=== PATIENT | female | born 1965 | race Caucasian/White ===

== ENCOUNTER 2020-10-13 20:12 | Day surgery (SDCO) | payer OTHER ==
[~2020-10-13] VITALS: Ht 165.1 cm; Wt 94.0 kg
[~2020-10-13 20:12] MED LIST: CYMBALTA60 MG PO; IBUPROFEN800 MG PO; PRINIVIL20 MG PO; SYNTHROID125 MCG PO; VENTOLIN HFA IN18 GM INH
[2020-10-13 22:18] LABS: BASOPHIL 0.1 % (0-2); EOSINOPHIL 0 % (0-5); HCT 33.5 % (37.0-47.0); HGB 10.4 g/dl (12.5-16.0); LYMPHOCYTE 13.9 % (15-48); MCH 27.6 pg (25.0-31.0); MCV 88.9 fL (78.0-100.0); MONOCYTE 3.5 % (0-12); MPV 11.4 fL (6.0-9.5); NEUTROPHIL 82.1 % (41-80); NRBC 0; PLT 232 K/uL (150-400); RBC 3.77 M/uL (4.20-5.40); RDW 14.5 % (11.5-14.0); WBC 6.9 K/uL (4.0-10.5)
[2020-10-13 22:23] LABS: INR 1.27 (0.9-1.2); PROTHROMBIN TIME 15.1 SECONDS (11.4-13.6); PTT 25.5 SECONDS (22.2-34.7)
[2020-10-13 22:31] LABS: ALBUMIN 3.3 g/dL (3.4-5.0); BILIRUBIN - TOTAL 0.4 mg/dL (0.2-1.0); GLOBULIN (CALCULATION) 3.8 g/dL; POTASSIUM 4.1 mmol/L (3.5-5.1); TOTAL PROTEIN 7.1 g/dL (6.4-8.2)
[2020-10-13 23:00] LABS: LDH 325 U/L (81-234)
[2020-10-13 23:36] LABS: CORONAVIRUS 2019 SARS-COV-2 NEGATIVE (NEGATIVE); INFLUENZA A NAA NEGATIVE (NEGATIVE)
[2020-10-14 03:17] LABS: BILIRUBIN NEGATIVE (NEGATIVE); BLOOD NEGATIVE Ery/uL (NEGATIVE); CLARITY CLEAR (CLEAR); COLOR YELLOW (YELLOW); GLUCOSE (U) NORMAL (NORMAL); LEUKOCYTES NEGATIVE Leu/uL (NEGATIVE); NITRITE NEGATIVE (NEGATIVE); PROTEIN 1+ mg/dL (NEGATIVE); SPECIFIC GRAVITY >=1.030 (1.001-1.030); UROBILINOGEN 0.2 mg/dL (0.2-1.0); pH 5.5 (5.0-9.0)
[2020-10-14 03:26] LABS: AMORPHOUS URATES CRYSTALS TRACE
[2020-10-14] MEDS ORDERED: CIPRO500 MG PO (04:46)
[2020-10-14] MEDS ORDERED: PREDNISONE 20MG20 MG PO (04:48)
[2020-10-14] MEDS ORDERED: SYNTHROID50 MCG PO (04:50)
[2020-10-14] MEDS ORDERED: PRINIVIL10 MG PO (04:50)
[2020-10-14] MEDS ORDERED: CYMBALTA20 MG PO (04:51)
[2020-10-14] MEDS ORDERED: IMITREX25 MG PO (04:53)
[2020-10-14] MEDS ORDERED: SINGULAIR10 MG PO (04:53)
[2020-10-14] MEDS ORDERED: PROAIR HFA8.5 GM PO (04:54)
[2020-10-14] MEDS ORDERED: ADVAIR 100-501 EACH INH (04:55)
[2020-10-14] MEDS ORDERED: IBUPROFEN800 MG PO (04:56)
[2020-10-15 00:21] LABS: BUN/CREAT RATIO (CALC) 25.2 RATIO; CREATININE 1.19 mg/dL (0.51-0.95); MAGNESIUM 2.2 mg/dL (1.8-2.4); POTASSIUM 3.8 mmol/L (3.5-5.1)
[2020-10-15 06:35] LABS: BASOPHIL 0.2 % (0-2); EOSINOPHIL 0.1 % (0-5); HCT 38.9 % (37.0-47.0); HGB 12.6 g/dl (12.5-16.0); LYMPHOCYTE 35.8 % (15-48); MCH 27.3 pg (25.0-31.0); MCHC 32.4 g/dL (32.0-36.0); MCV 84.2 fL (78.0-100.0); MONOCYTE 6.1 % (0-12); MPV 10.9 fL (6.0-9.5); NEUTROPHIL 57.3 % (41-80); NRBC 0; PLT 255 K/uL (150-400); RBC 4.62 M/uL (4.20-5.40); RDW 13.7 % (11.5-14.0); WBC 8.8 K/uL (4.0-10.5)
[2020-10-15 06:55] LABS: ALBUMIN 3.8 g/dL (3.4-5.0); BILIRUBIN - TOTAL 0.6 mg/dL (0.2-1.0); BUN/CREAT RATIO (CALC) 27.4 RATIO; CREATININE 1.13 mg/dL (0.51-0.95); GLOBULIN (CALCULATION) 3.7 g/dL; POTASSIUM 3.8 mmol/L (3.5-5.1); TOTAL PROTEIN 7.5 g/dL (6.4-8.2)
== END 2020-10-16 09:59 | disposition other institution (70) ==
LOC: FER 20:12 → FTCU 10-14 03:08
PROVIDERS: Emergency Medicine Emergency Medical Services; Nurse Practitioner; ADMIT Internal Medicine
DX: I11.0 Hypertensive heart disease with heart failure (principal); I50.9 Heart failure, unspecified; I08.8 Other rheumatic multiple valve diseases; E03.9 Hypothyroidism, unspecified; J44.1 Chronic obstructive pulmonary disease with (acute) exacerbation; G43.909 Migraine, unspecified, not intractable, without status migrainosus; F17.210 Nicotine dependence, cigarettes, uncomplicated; M19.90 Unspecified osteoarthritis, unspecified site; Z90.49 Acquired absence of other specified parts of digestive tract; Z88.1 Allergy status to other antibiotic agents; Z20.822 Contact with and (suspected) exposure to COVID-19
CPT/HCPCS: 36415; 36600; 71045; 71275; 74018; 80048; 80053; 81001; 82728; 82803; 83615; 83735; 83880; 84145; 84484; 85025; 85379; 85610; 85730; 87088; 93005; 93971; 94640; 94664; 94762; 96365; 96375; 97116; 97161; 97530-GP; G0378; J1940; J1956; J2060; J2930; Q9967; U0002

== ENCOUNTER 2020-11-14 03:27 | Inpatient (IN) | payer OTHER ==
[~2020-11-14 03:27] MED LIST changes: +ADVAIR 100-501 EACH INH; +CIPRO500 MG PO; +CYMBALTA20 MG PO; +IMITREX25 MG PO; +PREDNISONE 20MG20 MG PO; +PRINIVIL10 MG PO; +PROAIR HFA8.5 GM PO; +SINGULAIR10 MG PO; +SYNTHROID50 MCG PO
[2020-11-14 04:01] LABS: BASOPHIL 0.3 % (0-2); EOSINOPHIL 0.7 % (0-5); HCT 34.3 % (37.0-47.0); HGB 11.2 g/dl (12.5-16.0); LYMPHOCYTE 28.1 % (15-48); MCH 26.8 pg (25.0-31.0); MCHC 32.7 g/dL (32.0-36.0); MCV 82.1 fL (78.0-100.0); MONOCYTE 6.9 % (0-12); MPV 11.4 fL (6.0-9.5); NEUTROPHIL 63.8 % (41-80); NRBC 0; PLT 198 K/uL (150-400); RBC 4.18 M/uL (4.20-5.40)
[2020-11-14 04:19] LABS: ALBUMIN 3.1 g/dL (3.4-5.0); BILIRUBIN - TOTAL 0.6 mg/dL (0.2-1.0); BUN/CREAT RATIO (CALC) 15.1 RATIO; CREATININE 0.73 mg/dL (0.51-0.95); GLOBULIN (CALCULATION) 3.2 g/dL; POTASSIUM 2.7 mmol/L (3.5-5.1); TOTAL PROTEIN 6.3 g/dL (6.4-8.2)
[2020-11-14] MEDS ORDERED: PROPRANOLOL HCL20 MG PO (12:40)
[2020-11-14] MEDS ORDERED: SUMATRIPTAN SUC50 MG PO (12:48)
[2020-11-14] MEDS ORDERED: VITAMIN D21250 MCG OS (12:52)
[2020-11-14] MEDS ORDERED: VITAMIN B-121000 MC1 PO (12:54)
[2020-11-14] MEDS ORDERED: LEVOTHYROXINE175 MC1 PO (12:54)
[2020-11-14] MEDS ORDERED: SINGULAIR10 MG PO (12:57)
[2020-11-14] MEDS ORDERED: VITAMIN D21250 MCG PO (12:57)
[2020-11-14] MEDS ORDERED: LISINOPRIL-HCT1 EAC1 PO (12:59)
[2020-11-14] MEDS ORDERED: PROAIR DIGIHAL90 MCG INH (13:01)
[2020-11-14] MEDS ORDERED: CHLORZOXAZONE500 MG PO (13:02)
[2020-11-14] MEDS ORDERED: IBUPROFEN800 MG PO (13:02)
[2020-11-14] MEDS ORDERED: INDERAL20 MG PO (13:03)
[2020-11-14] MEDS ORDERED: CYMBALTA20 MG PO (13:04)
[2020-11-14] MEDS ORDERED: ADVAIR 250/5028 PUFF INH (13:06)
[2020-11-14] MEDS ORDERED: CIPRO500 MG PO (13:07)
[2020-11-14] MEDS ORDERED: PREDNISONE 20MG20 MG PO (13:08)
[2020-11-14] MEDS ORDERED: TOPROL XL 25MG25 MG PO (13:09)
[2020-11-15 06:16] LABS: BUN/CREAT RATIO (CALC) 16.5 RATIO; CREATININE 0.85 mg/dL (0.51-0.95); MAGNESIUM 1.7 mg/dL (1.8-2.4); POTASSIUM 3.3 mmol/L (3.5-5.1)
[2020-11-15 06:32] LABS: BASOPHIL 0.4 % (0-2); EOSINOPHIL 1.8 % (0-5); HCT 36.6 % (37.0-47.0); HGB 11.7 g/dl (12.5-16.0); LYMPHOCYTE 30.7 % (15-48); MCH 26.7 pg (25.0-31.0); MCV 83.4 fL (78.0-100.0); MONOCYTE 6.8 % (0-12); MPV 11.8 fL (6.0-9.5); NEUTROPHIL 59.9 % (41-80); NRBC 0; PLT 212 K/uL (150-400); RBC 4.39 M/uL (4.20-5.40); RDW 15.3 % (11.5-14.0); WBC 5.6 K/uL (4.0-10.5)
[2020-11-16 05:57] LABS: BASOPHIL 0.6 % (0-2); EOSINOPHIL 1.9 % (0-5); HCT 35.6 % (37.0-47.0); HGB 11.5 g/dl (12.5-16.0); LYMPHOCYTE 35.8 % (15-48); MCH 26.7 pg (25.0-31.0); MCHC 32.3 g/dL (32.0-36.0); MCV 82.6 fL (78.0-100.0); MONOCYTE 8.5 % (0-12); MPV 10.9 fL (6.0-9.5); NEUTROPHIL 52.8 % (41-80); NRBC 0; PLT 181 K/uL (150-400); RBC 4.31 M/uL (4.20-5.40); WBC 5.2 K/uL (4.0-10.5)
[2020-11-16 05:58] LABS: BUN/CREAT RATIO (CALC) 17.2 RATIO; CREATININE 0.87 mg/dL (0.51-0.95); MAGNESIUM 1.7 mg/dL (1.8-2.4); POTASSIUM 3.5 mmol/L (3.5-5.1)
[2020-11-16] MEDS ORDERED: MAG-OXIDE 400M400 MG PO (09:05)
[2020-11-16] MEDS ORDERED: BUMEX1 MG PO (09:05)
[2020-11-16] MEDS ORDERED: DIOVAN80 MG PO (09:05)
[2020-11-16] MEDS ORDERED: TOPROL XL 25MG25 MG PO (09:05)
[2020-11-16] MEDS ORDERED: K-DUR20 MEQ PO (09:06)
--- NOTE | 2020-11-16 09:58 | NUR ---
MET WITH PT AND SPOUSE. PT. REPORTS THAT SHE IS INDEPENDENT. SHE HAS THE SUPPORT OF HER . SHE HAS A LIFE VEST DEFIBULATOR. SHE WILL BE SEEING HER CARIOLOGIST ON November. SHE WOULD LIKE A 10/01. ADVISED JIMI PERSAUD SHE CONTINUES TO FOLLOW HER FROM [facility].
--- NOTE | 2020-11-16 10:32 | NUR ---
11/16/20 Patient lives with her former spouse and her brother. She has a life vest and nebulizer. Ms. Medrano has been denied SSD 3 times. She receives foodstamps. She continues to experience financial struggles. - Ms. Medrano reports to experience depression. She denies suicidal ideations, intentions, or attempts. - A referral was made to [facility] for a 3in1 per patient choice. The 3in1 will be delivered to home. - Ms. Medrano was provided with counseling services and financial community resources to include [employer]. - A report was given to MS BOB Soriano.
== END 2020-11-16 12:00 | disposition home or self-care (01) | DRG 293 ==
LOC: FER 03:27 → FTCU 08:34 → FMS 11-15 09:09
PROVIDERS: Emergency Medicine; ADMIT Internal Medicine
DX: I11.0 Hypertensive heart disease with heart failure (principal); I50.23 Acute on chronic systolic (congestive) heart failure; E03.9 Hypothyroidism, unspecified; I42.8 Other cardiomyopathies; J44.9 Chronic obstructive pulmonary disease, unspecified; Z20.822 Contact with and (suspected) exposure to COVID-19; E87.6 Hypokalemia; E83.42 Hypomagnesemia; T50.2X5A Adverse effect of carbonic-anhydrase inhibitors, benzothiadiazides and other diuretics, initial encounter; G43.909 Migraine, unspecified, not intractable, without status migrainosus; R73.9 Hyperglycemia, unspecified; D64.9 Anemia, unspecified; Z90.49 Acquired absence of other specified parts of digestive tract; Z88.1 Allergy status to other antibiotic agents; Z98.890 Other specified postprocedural states; Z79.52 Long term (current) use of systemic steroids; Z79.899 Other long term (current) drug therapy
CPT/HCPCS: 36415; 36600; 71045; 71275; 80048; 80053; 82803; 83735; 83880; 84484; 85025; 85379; 93005; 94640; 94760; J1650; J1940; J2060; J3475; J3480; Q9967; U0002

== ENCOUNTER 2020-12-22 17:00 | Emergency (ER) | payer OTHER ==
[~2020-12-22 17:00] MED LIST changes: +ADVAIR 250/5028 PUFF INH; +BUMEX1 MG PO; +CHLORZOXAZONE500 MG PO; +DIOVAN80 MG PO; +INDERAL20 MG PO; +K-DUR20 MEQ PO; +LEVOTHYROXINE175 MC1 PO; +LISINOPRIL-HCT1 EAC1 PO; +MAG-OXIDE 400M400 MG PO; +PROAIR DIGIHAL90 MCG INH; +PROPRANOLOL HCL20 MG PO; +SUMATRIPTAN SUC50 MG PO; +TOPROL XL 25MG25 MG PO; +VITAMIN B-121000 MC1 PO; +VITAMIN D21250 MCG OS; +VITAMIN D21250 MCG PO
[2020-12-22 18:13] LABS: BASOPHIL 0.4 % (0-2); EOSINOPHIL 0.2 % (0-5); HCT 37.1 % (37.0-47.0); HGB 11.9 g/dl (12.5-16.0); LYMPHOCYTE 23.9 % (15-48); MCH 25.9 pg (25.0-31.0); MCHC 32.1 g/dL (32.0-36.0); MCV 80.8 fL (78.0-100.0); MONOCYTE 6.5 % (0-12); MPV 11.6 fL (6.0-9.5); NEUTROPHIL 68.6 % (41-80); NRBC 0; PLT 212 K/uL (150-400); RBC 4.59 M/uL (4.20-5.40); RDW 17.3 % (11.5-14.0); WBC 4.9 K/uL (4.0-10.5)
[2020-12-22 18:23] LABS: INR 1.41 (0.9-1.2); PROTHROMBIN TIME 16.4 SECONDS (11.4-13.6); PTT 29.6 SECONDS (22.2-34.7)
[2020-12-22 18:34] LABS: LACTIC ACID 4.1 mmol/L (0.4-1.9)
[2020-12-22 18:40] LABS: ALBUMIN 3.3 g/dL (3.4-5.0); BILIRUBIN - TOTAL 1.3 mg/dL (0.2-1.0); BUN/CREAT RATIO (CALC) 12.6 RATIO; CREATININE 0.87 mg/dL (0.51-0.95); GLOBULIN (CALCULATION) 4.1 g/dL; POTASSIUM 3.2 mmol/L (3.5-5.1); TOTAL PROTEIN 7.4 g/dL (6.4-8.2)
[2020-12-22 18:41] LABS: CKMB 1.7 ng/mL (0.0-3.6)
== END 2020-12-23 09:45 | disposition other institution (70) ==
LOC: FER 17:00
PROVIDERS: Emergency Medicine
DX: I50.9 Heart failure, unspecified (principal); R10.9 Unspecified abdominal pain; R11.0 Nausea; E87.6 Hypokalemia; J90 Pleural effusion, not elsewhere classified; I44.7 Left bundle-branch block, unspecified; F17.210 Nicotine dependence, cigarettes, uncomplicated; Z90.49 Acquired absence of other specified parts of digestive tract; Z88.1 Allergy status to other antibiotic agents; Z79.899 Other long term (current) drug therapy; Z20.822 Contact with and (suspected) exposure to COVID-19
CPT/HCPCS: 36415; 71046; 74019; 80053; 82553; 83605; 83690; 83880; 84484; 85025; 85610; 85730; 87339; 93005; J1885; J2405; J3480; J7040; Q9967; U0002

== ENCOUNTER 2021-01-20 23:46 | Day surgery (SDCO) | payer OTHER ==
[~2021-01-20] VITALS: Ht 165.1 cm; Wt 80.8 kg
[2021-01-21 01:59] LABS: BASOPHIL 0.3 % (0-2); EOSINOPHIL 0.4 % (0-5); HCT 32.9 % (37.0-47.0); HGB 10.4 g/dl (12.5-16.0); LYMPHOCYTE 27.5 % (15-48); MCH 25.1 pg (25.0-31.0); MCHC 31.6 g/dL (32.0-36.0); MCV 79.3 fL (78.0-100.0); MONOCYTE 4.5 % (0-12); MPV 11.3 fL (6.0-9.5); NEUTROPHIL 66.9 % (41-80); NRBC 0.4; PLT 183 K/uL (150-400); RBC 4.15 M/uL (4.20-5.40); RDW 19.7 % (11.5-14.0); WBC 6.9 K/uL (4.0-10.5)
[2021-01-21 02:10] LABS: INR 1.39 (0.9-1.2); PROTHROMBIN TIME 16.2 SECONDS (11.4-13.6); PTT 31.1 SECONDS (22.2-34.7)
[2021-01-21 02:11] LABS: D-DIMER 1.9 ug/mLFEU (0.00-0.41)
[2021-01-21 02:22] LABS: LACTIC ACID 2.1 mmol/L (0.4-1.9)
[2021-01-21 02:51] LABS: FT4 (FREE T4) 0.9 ng/dL (0.76-1.46)
[2021-01-21 02:55] LABS: ALBUMIN 3.3 g/dL (3.4-5.0); BILIRUBIN - TOTAL 1.3 mg/dL (0.2-1.0); BUN/CREAT RATIO (CALC) 23.8 RATIO; CREATININE 0.8 mg/dL (0.51-0.95); POTASSIUM 3.3 mmol/L (3.5-5.1); TOTAL PROTEIN 7.3 g/dL (6.4-8.2)
[2021-01-21 10:52] LABS: BILIRUBIN NEGATIVE (NEGATIVE); BLOOD NEGATIVE Ery/uL (NEGATIVE); CLARITY CLEAR (CLEAR); COLOR YELLOW (YELLOW); GLUCOSE (U) NORMAL (NORMAL); LEUKOCYTES NEGATIVE Leu/uL (NEGATIVE); NITRITE NEGATIVE (NEGATIVE); PROTEIN NEGATIVE (NEGATIVE); SPECIFIC GRAVITY 1.015 (1.001-1.030); UROBILINOGEN 0.2 mg/dL (0.2-1.0)
--- NOTE | 2021-01-21 10:53 | NUR ---
LEVSHARON WAS ON PATIENT'S CHART VIET, ASKED PATIENT AND SHE STATES SHE HAS NO ALLERGIES TO ANY MEDICATION
[2021-01-22 06:19] LABS: BASOPHIL 0.1 % (0-2); EOSINOPHIL 0 % (0-5); HCT 33.6 % (37.0-47.0); HGB 10.7 g/dl (12.5-16.0); LYMPHOCYTE 10.6 % (15-48); MCH 25.2 pg (25.0-31.0); MCHC 31.8 g/dL (32.0-36.0); MCV 79.1 fL (78.0-100.0); MPV 11.4 fL (6.0-9.5); NRBC 0.2; PLT 170 K/uL (150-400); RBC 4.25 M/uL (4.20-5.40); RDW 19.9 % (11.5-14.0); WBC 8.9 K/uL (4.0-10.5)
[2021-01-22 07:06] LABS: BUN/CREAT RATIO (CALC) 29.4 RATIO; CREATININE 1.02 mg/dL (0.51-0.95); POTASSIUM 3.7 mmol/L (3.5-5.1)
[2021-01-22] MEDS ORDERED: NORCO 5-325 TA1 EACH PO (11:31)
== END 2021-01-22 16:20 | disposition home or self-care (01) ==
LOC: FER 23:46 → FMS 01-21 07:51
PROVIDERS: Emergency Medicine Emergency Medical Services; Internal Medicine; ADMIT Internal Medicine
DX: I42.8 Other cardiomyopathies (principal); J44.9 Chronic obstructive pulmonary disease, unspecified; G43.909 Migraine, unspecified, not intractable, without status migrainosus; E03.9 Hypothyroidism, unspecified; I10 Essential (primary) hypertension; M19.90 Unspecified osteoarthritis, unspecified site; I45.4 Nonspecific intraventricular block; Z95.810 Presence of automatic (implantable) cardiac defibrillator; Z20.822 Contact with and (suspected) exposure to COVID-19
CPT/HCPCS: 36415; 71045; 80048; 80053; 81003; 83605; 83880; 84145; 84439; 84443; 84484; 85025; 85379; 85610; 85730; 87040; 87088; 93005; 94640; 96365; 96375; 96376; G0378; J0692; J1100; J1200; J1885; J1940; J2270; J2543; J2765; U0002

== ENCOUNTER 2021-02-15 21:53 | Inpatient (IN) | payer OTHER ==
[~2021-02-15] VITALS: Ht 165.1 cm; Wt 77.4 kg
[~2021-02-15 21:53] MED LIST changes: +NORCO 5-325 TA1 EACH PO
[2021-02-15 23:25] LABS: BASOPHIL 0.6 % (0-2); EOSINOPHIL 0.2 % (0-5); HCT 35.4 % (37.0-47.0); HGB 10.8 g/dl (12.5-16.0); MCH 24.4 pg (25.0-31.0); MCHC 30.5 g/dL (32.0-36.0); MCV 79.9 fL (78.0-100.0); MONOCYTE 7.4 % (0-12); MPV 11.3 fL (6.0-9.5); NEUTROPHIL 62.5 % (41-80); NRBC 0.4; PLT 200 K/uL (150-400); RBC 4.43 M/uL (4.20-5.40); RDW 20.4 % (11.5-14.0); WBC 4.7 K/uL (4.0-10.5)
[2021-02-15 23:27] LABS: LYMPHOCYTE 29.1 % (15-48)
[2021-02-15 23:43] LABS: ALBUMIN 3.3 g/dL (3.4-5.0); BILIRUBIN - TOTAL 1.6 mg/dL (0.2-1.0); BUN/CREAT RATIO (CALC) 13.8 RATIO; CREATININE 0.87 mg/dL (0.51-0.95); GLOBULIN (CALCULATION) 3.7 g/dL; POTASSIUM 2.9 mmol/L (3.5-5.1)
--- NOTE | 2021-02-16 12:32 | NUR ---
PT IS IN OBSERVATION. PLEASE CONSIDER INPT OR D/C. THANK YOU
[2021-02-17 05:51] LABS: BASOPHIL 0.5 % (0-2); EOSINOPHIL 0.2 % (0-5); LYMPHOCYTE 25.8 % (15-48); MCH 24.2 pg (25.0-31.0); MCHC 29.3 g/dL (32.0-36.0); MCV 82.8 fL (78.0-100.0); MONOCYTE 10.2 % (0-12); MPV 11.7 fL (6.0-9.5); NEUTROPHIL 63.1 % (41-80); NRBC 0.5; PLT 199 K/uL (150-400); RBC 4.95 M/uL (4.20-5.40); RDW 20.7 % (11.5-14.0); WBC 5.9 K/uL (4.0-10.5)
[2021-02-17 06:21] LABS: ALBUMIN 3.6 g/dL (3.4-5.0); BILIRUBIN - TOTAL 2.2 mg/dL (0.2-1.0); BUN/CREAT RATIO (CALC) 9.9 RATIO; CREATININE 1.81 mg/dL (0.51-0.95); GLOBULIN (CALCULATION) 3.5 g/dL; TOTAL PROTEIN 7.1 g/dL (6.4-8.2)
[2021-02-17 06:26] LABS: POTASSIUM 6.4 mmol/L (3.5-5.1)
[2021-02-17 06:34] LABS: CKMB 3.2 ng/mL (0.0-3.6)
[2021-02-17 14:56] LABS: CREATININE 2.08 mg/dL (0.51-0.95); POTASSIUM 6.2 mmol/L (3.5-5.1)
[2021-02-17 20:24] LABS: BUN/CREAT RATIO (CALC) 13.4 RATIO; CREATININE 2.31 mg/dL (0.51-0.95); POTASSIUM 5.6 mmol/L (3.5-5.1)
[2021-02-18 06:11] LABS: BUN/CREAT RATIO (CALC) 13.3 RATIO; CREATININE 2.26 mg/dL (0.51-0.95)
[2021-02-18 06:18] LABS: POTASSIUM 4.1 mmol/L (3.5-5.1)
[2021-02-19 04:43] LABS: BASOPHIL 0.4 % (0-2); EOSINOPHIL 0.2 % (0-5); HCT 35.5 % (37.0-47.0); HGB 10.7 g/dl (12.5-16.0); LYMPHOCYTE 24.4 % (15-48); MCH 24.2 pg (25.0-31.0); MCHC 30.1 g/dL (32.0-36.0); MCV 80.3 fL (78.0-100.0); MONOCYTE 9.9 % (0-12); MPV 11.8 fL (6.0-9.5); NEUTROPHIL 64.7 % (41-80); NRBC 0.6; PLT 170 K/uL (150-400); RBC 4.42 M/uL (4.20-5.40); WBC 5.2 K/uL (4.0-10.5)
[2021-02-19 05:09] LABS: BUN/CREAT RATIO (CALC) 17.5 RATIO; CREATININE 1.66 mg/dL (0.51-0.95); POTASSIUM 3.4 mmol/L (3.5-5.1)
[2021-02-19 11:45] LABS: URINE CREATININE 98.59 mg/dL (29.00-226.00)
[2021-02-20 06:35] LABS: BASOPHIL 0.2 % (0-2); EOSINOPHIL 0.4 % (0-5); HCT 35.1 % (37.0-47.0); HGB 10.7 g/dl (12.5-16.0); LYMPHOCYTE 27.8 % (15-48); MCH 24.3 pg (25.0-31.0); MCHC 30.5 g/dL (32.0-36.0); MCV 79.6 fL (78.0-100.0); MONOCYTE 10.7 % (0-12); MPV 10.5 fL (6.0-9.5); NEUTROPHIL 60.7 % (41-80); NRBC 0; PLT 143 K/uL (150-400); RBC 4.41 M/uL (4.20-5.40); RDW 20.1 % (11.5-14.0)
[2021-02-20 06:40] LABS: WBC 4.6 K/uL (4.0-10.5)
[2021-02-20 07:07] LABS: BUN/CREAT RATIO (CALC) 17.9 RATIO; CREATININE 1.12 mg/dL (0.51-0.95); FT4 (FREE T4) 1.2 ng/dL (0.76-1.46); MAGNESIUM 1.6 mg/dL (1.8-2.4); PHOSPHORUS 3.3 mg/dL (2.6-4.7); POTASSIUM 3.5 mmol/L (3.5-5.1)
[2021-02-21 05:59] LABS: BASOPHIL 0.2 % (0-2); EOSINOPHIL 0.2 % (0-5); HCT 34.5 % (37.0-47.0); HGB 10.4 g/dl (12.5-16.0); LYMPHOCYTE 22.2 % (15-48); MCH 23.9 pg (25.0-31.0); MCHC 30.1 g/dL (32.0-36.0); MCV 79.3 fL (78.0-100.0); MONOCYTE 8.5 % (0-12); MPV 11.4 fL (6.0-9.5); NEUTROPHIL 68.7 % (41-80); NRBC 0; PLT 162 K/uL (150-400); RBC 4.35 M/uL (4.20-5.40)
[2021-02-21 06:05] LABS: BUN/CREAT RATIO (CALC) 17.1 RATIO; CREATININE 1.05 mg/dL (0.51-0.95); MAGNESIUM 1.6 mg/dL (1.8-2.4); POTASSIUM 3.6 mmol/L (3.5-5.1)
== END 2021-02-21 16:45 | disposition home or self-care (01) | DRG 291 ==
LOC: FER 21:53 → FMS 02-16 03:08
PROVIDERS: Allergy & Immunology Allergy; Internal Medicine; Internal Medicine Nephrology; Nurse Practitioner; ADMIT Internal Medicine
DX: I13.0 Hypertensive heart and chronic kidney disease with heart failure and stage 1 through stage 4 chronic kidney disease, or unspecified chronic kidney disease (principal); I50.23 Acute on chronic systolic (congestive) heart failure; N17.9 Acute kidney failure, unspecified; I42.8 Other cardiomyopathies; Z20.822 Contact with and (suspected) exposure to COVID-19; J44.9 Chronic obstructive pulmonary disease, unspecified; E87.6 Hypokalemia; G43.909 Migraine, unspecified, not intractable, without status migrainosus; N18.2 Chronic kidney disease, stage 2 (mild); E03.9 Hypothyroidism, unspecified; F17.210 Nicotine dependence, cigarettes, uncomplicated; M19.90 Unspecified osteoarthritis, unspecified site; E87.5 Hyperkalemia; E83.42 Hypomagnesemia; G47.00 Insomnia, unspecified; F41.9 Anxiety disorder, unspecified; Z79.899 Other long term (current) drug therapy; Z88.1 Allergy status to other antibiotic agents; Z90.49 Acquired absence of other specified parts of digestive tract; Z98.890 Other specified postprocedural states; Z90.89 Acquired absence of other organs; Z95.810 Presence of automatic (implantable) cardiac defibrillator
CPT/HCPCS: 36415; 71045; 80048; 80053; 82553; 82570; 83690; 83735; 83880; 84100; 84132; 84156; 84439; 84443; 84484; 85025; 93005; 94010; 94640; 94760; J1650; J1940; J2405; J2550; J3475; J7030; U0002

== ENCOUNTER 2021-02-28 15:31 | Day surgery (SDCO) | payer OTHER ==
[~2021-02-28] VITALS: Ht 165.1 cm; Wt 81.3 kg
[2021-02-28 16:06] LABS: BASOPHIL 0.3 % (0-2); EOSINOPHIL 0 % (0-5); HCT 35.7 % (37.0-47.0); HGB 10.7 g/dl (12.5-16.0); LYMPHOCYTE 23.4 % (15-48); MONOCYTE 6.9 % (0-12); MPV 11.9 fL (6.0-9.5); NEUTROPHIL 69.1 % (41-80); NRBC 0.3; PLT 223 K/uL (150-400); RBC 4.46 M/uL (4.20-5.40); RDW 20.5 % (11.5-14.0)
[2021-02-28 16:13] LABS: INR 1.53 (0.9-1.2); PROTHROMBIN TIME 17.7 SECONDS (11.8-13.4); PTT 29.3 SECONDS (24.4-34.7); WBC 5.8 K/uL (4.0-10.5)
[2021-02-28 16:25] LABS: ALBUMIN 3.4 g/dL (3.4-5.0); BILIRUBIN - TOTAL 1.6 mg/dL (0.2-1.0); BUN/CREAT RATIO (CALC) 21.1 RATIO; CREATININE 0.95 mg/dL (0.51-0.95); TOTAL PROTEIN 7.4 g/dL (6.4-8.2)
[2021-03-01 06:44] LABS: BASOPHIL 0.2 % (0-2); EOSINOPHIL 0.9 % (0-5); HCT 31.5 % (37.0-47.0); HGB 9.7 g/dl (12.5-16.0); MCH 24.3 pg (25.0-31.0); MCHC 30.8 g/dL (32.0-36.0); MCV 78.8 fL (78.0-100.0); MONOCYTE 7.9 % (0-12); MPV 11.4 fL (6.0-9.5); NEUTROPHIL 54.8 % (41-80); NRBC 0; PLT 179 K/uL (150-400); RDW 19.9 % (11.5-14.0); WBC 4.5 K/uL (4.0-10.5)
[2021-03-01 07:01] LABS: CREATININE 1.28 mg/dL (0.51-0.95); POTASSIUM 4.2 mmol/L (3.5-5.1)
[2021-03-01] MEDS ORDERED: NORCO 5-325 TA1 EACH PO (11:37)
[2021-03-01] MEDS ORDERED: IBUPROFEN400 MG PO (11:37)
--- NOTE | 2021-03-01 14:19 | NUR ---
D/C INSTRUCTIONS GIVEN TO PT AT 1200. PT STATED SHE WOULD CALL HER SISTER TO COME GET HER AND WENT BACK TO SLEEP IN HER CHAIR. WHEN LUNCH WAS BROUGHT, I WOKE PATIENT UP AND ASKED HER IF SHE WANTED TO EAT THEN CALL HER SISTER FOR HER RIDE HOME. SHE STATED SHE WOULD CALL AFTER SHE ATE. CHECKED ON PATIENT AFTER LUNCH AND SHE STATED HER SISTER DID NOT ANSWER AND SHE LEFT A MESSAGE.
== END 2021-03-01 16:00 | disposition home or self-care (01) ==
LOC: FER 15:31 → FTCU 20:59
PROVIDERS: Emergency Medicine; Nurse Practitioner; ADMIT Internal Medicine
DX: R07.89 Other chest pain (principal); M94.0 Chondrocostal junction syndrome [Tietze]; I11.0 Hypertensive heart disease with heart failure; I50.20 Unspecified systolic (congestive) heart failure; I42.8 Other cardiomyopathies; J44.9 Chronic obstructive pulmonary disease, unspecified; E87.70 Fluid overload, unspecified; F41.1 Generalized anxiety disorder; G43.909 Migraine, unspecified, not intractable, without status migrainosus; E03.9 Hypothyroidism, unspecified; M19.90 Unspecified osteoarthritis, unspecified site; F17.210 Nicotine dependence, cigarettes, uncomplicated; Z95.810 Presence of automatic (implantable) cardiac defibrillator; Z88.1 Allergy status to other antibiotic agents; Z79.01 Long term (current) use of anticoagulants; Z79.1 Long term (current) use of non-steroidal anti-inflammatories (NSAID); Z79.899 Other long term (current) drug therapy; Z20.822 Contact with and (suspected) exposure to COVID-19
CPT/HCPCS: 36415; 71045; 71275; 80048; 80053; 83880; 84439; 84443; 84484; 85025; 85610; 85730; 93005; G0378; J1885; J2270; J2405; Q9967; U0002

== ENCOUNTER 2021-03-27 22:21 | Inpatient (IN) | payer OTHER ==
[~2021-03-27] VITALS: Ht 165.1 cm; Wt 84.4 kg
[~2021-03-27 22:21] MED LIST changes: +IBUPROFEN400 MG PO
[2021-03-28 01:23] LABS: BASOPHIL 0.1 % (0-2); EOSINOPHIL 0 % (0-5); HGB 10.2 g/dl (12.5-16.0); LYMPHOCYTE 9.1 % (15-48); MCH 23.2 pg (25.0-31.0); MCV 77.3 fL (78.0-100.0); MONOCYTE 4.6 % (0-12); MPV 11.8 fL (6.0-9.5); NEUTROPHIL 85.8 % (41-80); NRBC 0.6; PLT 185 K/uL (150-400); RDW 20.7 % (11.5-14.0); WBC 7.1 K/uL (4.0-10.5)
[2021-03-28 01:38] LABS: LACTIC ACID 2.5 mmol/L (0.4-1.9)
[2021-03-28 01:47] LABS: ALBUMIN 3.1 g/dL (3.4-5.0); BILIRUBIN - TOTAL 1.2 mg/dL (0.2-1.0); BUN/CREAT RATIO (CALC) 23.6 RATIO; CREATININE 0.72 mg/dL (0.51-0.95); GLOBULIN (CALCULATION) 3.8 g/dL; POTASSIUM 2.7 mmol/L (3.5-5.1); TOTAL PROTEIN 6.9 g/dL (6.4-8.2)
[2021-03-28] MEDS ORDERED: BUMEX1 MG PO (09:15)
[2021-03-28] MEDS ORDERED: VITAMIN D21250 MCG PO (09:18)
[2021-03-28] MEDS ORDERED: ELIQUIS5 MG PO (09:23)
[2021-03-28] MEDS ORDERED: COREG12.5 MG PO (09:24)
[2021-03-28] MEDS ORDERED: REMERON15 MG PO (09:25)
[2021-03-28 09:42] LABS: IRON % SATURATION 5.3 %SAT (20-50)
[2021-03-28 11:34] LABS: FOLIC ACID (SERUM) 13.6 ng/mL (8.6-58.9)
[2021-03-29 06:12] LABS: BASOPHIL 0.2 % (0-2); EOSINOPHIL 0 % (0-5); HCT 30.9 % (37.0-47.0); HGB 9.2 g/dl (12.5-16.0); LYMPHOCYTE 11.5 % (15-48); MCH 23.5 pg (25.0-31.0); MCHC 29.8 g/dL (32.0-36.0); MONOCYTE 5.1 % (0-12); NEUTROPHIL 82.3 % (41-80); NRBC 0; PLT 162 K/uL (150-400); RBC 3.91 M/uL (4.20-5.40); RDW 20.6 % (11.5-14.0); WBC 6.4 K/uL (4.0-10.5)
[2021-03-29 07:03] LABS: BUN/CREAT RATIO (CALC) 19.1 RATIO; CREATININE 1.1 mg/dL (0.51-0.95); MAGNESIUM 1.8 mg/dL (1.8-2.4); POTASSIUM 3.1 mmol/L (3.5-5.1)
--- NOTE | 2021-03-29 13:39 | NUR ---
03/29/21 Inocente Medrano, son, is requesting ermelinda at [facility] in [place], [place]. Ms. Medrano is in agreement. Ms. Angel chose [facility] and [facility] as alternative. Referrals have been made. Waiting on response.
--- NOTE | 2021-03-29 14:47 | NUR ---
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
[2021-03-30 06:37] LABS: BASOPHIL 0.4 % (0-2); EOSINOPHIL 0.4 % (0-5); HCT 31.7 % (37.0-47.0); HGB 9.5 g/dl (12.5-16.0); LYMPHOCYTE 20.4 % (15-48); MCH 23.7 pg (25.0-31.0); MCV 79.1 fL (78.0-100.0); MONOCYTE 6.1 % (0-12); MPV 11.5 fL (6.0-9.5); NEUTROPHIL 71.9 % (41-80); NRBC 0.8; PLT 187 K/uL (150-400); RBC 4.01 M/uL (4.20-5.40); RDW 20.8 % (11.5-14.0)
[2021-03-30 06:38] LABS: WBC 5.2 K/uL (4.0-10.5)
[2021-03-30 06:54] LABS: BUN/CREAT RATIO (CALC) 20.8 RATIO; CREATININE 1.06 mg/dL (0.51-0.95); MAGNESIUM 1.6 mg/dL (1.8-2.4)
[2021-03-30 06:58] LABS: POTASSIUM 2.9 mmol/L (3.5-5.1)
[2021-03-31 04:09] LABS: CREATININE 0.84 mg/dL (0.51-0.95); POTASSIUM 3.6 mmol/L (3.5-5.1)
--- NOTE | 2021-04-01 15:33 | NUR ---
04/01/21 [facility] will accept Ms. Medrano on 04/02/21. A new COVID test is required; Dr. Garduno was informed. Please call report to [phone] ext [phone] and fax DS to [phone]. Inocente Medarno will transport, . [facility] will bring 02 tanks for transport.
--- NOTE | 2021-04-02 02:26 | NUR ---
THIS NURSE NOTICED THAT I&O'S WERE NOT RECENTLY DOCUMENTED FOR THIS PT. PT IS INDEPENDANT IN ROOM & TOILETS SELF. PT STATES "OUTPUT HAS BEEN REGULAR FOR [HER]". THIS NURSE SPOKE WITH DEFENSIVE DRIVING INSTRUCTOR ON DUTY TO ENSURE I&O'S ARE DOCUMENTED PRIOR TO END OF THIS SHIFT. DEFENSIVE DRIVING INSTRUCTOR AGREES.
[2021-04-02] MEDS ORDERED: REMERON15 MG PO (14:29)
[2021-04-02] MEDS ORDERED: CEFDINIR300 MG PO (14:29)
== END 2021-04-02 17:40 | DRG 871 ==
LOC: FER 22:21 → FMS 03-28 06:30
PROVIDERS: Emergency Medicine; ADMIT Internal Medicine
DX: A41.9 Sepsis, unspecified organism (principal); J18.9 Pneumonia, unspecified organism; I50.23 Acute on chronic systolic (congestive) heart failure; J96.01 Acute respiratory failure with hypoxia; J44.0 Chronic obstructive pulmonary disease with (acute) lower respiratory infection; J44.1 Chronic obstructive pulmonary disease with (acute) exacerbation; Z20.822 Contact with and (suspected) exposure to COVID-19; R65.20 Severe sepsis without septic shock; I11.0 Hypertensive heart disease with heart failure; I48.0 Paroxysmal atrial fibrillation; E87.6 Hypokalemia; F17.210 Nicotine dependence, cigarettes, uncomplicated; E03.9 Hypothyroidism, unspecified; Z95.810 Presence of automatic (implantable) cardiac defibrillator; Z90.49 Acquired absence of other specified parts of digestive tract; Z90.89 Acquired absence of other organs; Z98.890 Other specified postprocedural states; Z83.3 Family history of diabetes mellitus; Z80.1 Family history of malignant neoplasm of trachea, bronchus and lung; Z82.5 Family history of asthma and other chronic lower respiratory diseases
CPT/HCPCS: 36415; 71045; 71275; 80048; 80053; 82607; 82746; 83540; 83550; 83605; 83735; 83880; 84145; 84484; 85025; 85379; 87040; 87070; 87077; 87205; 93005; 94640; 94664; 94667; 94668; 97110; 97116; 97161; 97166; 97530-GP; J0692; J1940; J2405; J2543; J2916; J2920; J2930; J3475; Q9967; U0002

== ENCOUNTER 2021-06-14 06:04 | Inpatient (IN) | payer OTHER ==
[~2021-06-14] VITALS: Ht 165.1 cm; Wt 80.0 kg
[~2021-06-14 06:04] MED LIST changes: +CEFDINIR300 MG PO; +COREG12.5 MG PO; +ELIQUIS5 MG PO; +REMERON15 MG PO
[2021-06-14 06:29] LABS: BASOPHIL 0.2 % (0-2); EOSINOPHIL 0.6 % (0-5); HCT 39.3 % (37.0-47.0); HGB 12.6 g/dl (12.5-16.0); LYMPHOCYTE 31.4 % (15-48); MCH 28.7 pg (25.0-31.0); MCHC 32.1 g/dL (32.0-36.0); MCV 89.5 fL (78.0-100.0); MONOCYTE 5.3 % (0-12); MPV 11.4 fL (6.0-9.5); NEUTROPHIL 62.3 % (41-80); NRBC 0; PLT 153 K/uL (150-400); RBC 4.39 M/uL (4.20-5.40); RDW 19.7 % (11.5-14.0); WBC 4.7 K/uL (4.0-10.5)
[2021-06-14 06:36] LABS: INR 1.31 (0.9-1.2); PROTHROMBIN TIME 15.6 SECONDS (11.8-13.4); PTT 31.8 SECONDS (24.4-34.7)
[2021-06-14 06:55] LABS: PRO-BNP > 35000 pg/mL (<125)
[2021-06-14 07:00] LABS: BILIRUBIN NEGATIVE (NEGATIVE); BLOOD 1+ Ery/uL (NEGATIVE); CLARITY CLEAR (CLEAR); COLOR YELLOW (YELLOW); GLUCOSE (U) NORMAL (NORMAL); LEUKOCYTES TRACE Leu/uL (NEGATIVE); NITRITE POSITIVE (NEGATIVE); PROTEIN 1+ mg/dL (NEGATIVE); SPECIFIC GRAVITY >=1.030 (1.001-1.030)
[2021-06-14 07:04] LABS: ALBUMIN 3.1 g/dL (3.4-5.0); BILIRUBIN - TOTAL 0.8 mg/dL (0.2-1.0); BUN/CREAT RATIO (CALC) 3.7 RATIO; CREATININE 0.81 mg/dL (0.51-0.95); FT4 (FREE T4) 0.3 ng/dL (0.76-1.46); GLOBULIN (CALCULATION) 3.4 g/dL; POTASSIUM 3.7 mmol/L (3.5-5.1); TOTAL PROTEIN 6.5 g/dL (6.4-8.2)
[2021-06-14 07:07] LABS: BACTERIA 4+
[2021-06-14 07:28] LABS: CORONAVIRUS 2019 SARS-COV-2 NEGATIVE (NEGATIVE); INFLUENZA A NAA NEGATIVE (NEGATIVE)
[2021-06-14] MEDS ORDERED: CYMBALTA20 MG PO (10:12)
[2021-06-14] MEDS ORDERED: CHLORZOXAZONE PO (10:13)
[2021-06-14] MEDS ORDERED: SINGULAIR10 MG PO (10:14)
[2021-06-14] MEDS ORDERED: IMITREX50 MG PO (10:15)
[2021-06-14] MEDS ORDERED: TOPROL XL 25MG25 MG PO (10:15)
[2021-06-14] MEDS ORDERED: UROCIT-K10 MEQ PO (10:16)
[2021-06-14] MEDS ORDERED: MAG-OXIDE 400M400 MG PO (10:17)
[2021-06-14] MEDS ORDERED: DIOVAN80 MG PO (10:17)
--- NOTE | 2021-06-14 10:25 | NUR ---
PATIENT REPORTS THAT SHE HAS NOT BEEN ABLE TO GET HER MEDICATIONS SINCE SHE LEFT THE [facility] ABOUT A MONTH AGO. SHE REPORT S THAT HER [employer] WOULD NOT PAY FOR THE MEDICATIONS BECAOUSE THEY SAID THAT SHE STILL LIVES AT THE [facility]. BUT SHE REPORTS THAT SHE WAS DISCHARGED AND THEY FORGOT TO PUT IT IN THERE COMPUTER AND THAT HAS SCREWED EVERYTHING UP. SHE WOULD LIKE SOME HELP TO GET THIS STRAIGHTENED OUT.
--- NOTE | 2021-06-14 15:12 | NUR ---
06/14/21 Nursing requested a social work consult r/t patient being unable to get her prescriptions filled because [facility] did not discharge her from their system. [facility] H[facility] reports: patient was discharged from the facility on 04/18/21 and they did not discharge her from their system. However, Medicaid was notified of the discharge on 06/06. [facility] verified patient to be listed at the [facility] address. Medicaid advised for patient to call member services at [phone] if she continues to have problems. - Ms. Medrano could not be arouse to participate in an assessment. Her son, Inocente Medrano, is unaware of any more than Ms. Medrano is living in her home with her son, Manuel. Inocente did not have a telephone # for Manuel. - A written note was left at bedside re: conversation with [facility], Medicaid telephone #, and [facility] for prescription assistance if they cannot get prescription filled through Medicaid / [facility].
[2021-06-15 06:05] LABS: BASOPHIL 0.2 % (0-2); HCT 36.9 % (37.0-47.0); HGB 12.1 g/dl (12.5-16.0); LYMPHOCYTE 28.4 % (15-48); MCH 28.9 pg (25.0-31.0); MCHC 32.8 g/dL (32.0-36.0); MCV 88.1 fL (78.0-100.0); MONOCYTE 5.5 % (0-12); MPV 11.5 fL (6.0-9.5); NEUTROPHIL 64.7 % (41-80); NRBC 0; PLT 150 K/uL (150-400); RBC 4.19 M/uL (4.20-5.40); RDW 19.3 % (11.5-14.0); WBC 4.2 K/uL (4.0-10.5)
[2021-06-15 06:26] LABS: ALBUMIN 2.8 g/dL (3.4-5.0); ALKALINE PHOSHATASE 86 U/L (46-116); ALT <6 U/L (14-59); AST 17 U/L (15-37); BILIRUBIN - TOTAL 0.8 mg/dL (0.2-1.0); BUN 11 mg/dL (7-18); BUN/CREAT RATIO (CALC) 10.1 RATIO; CHLORIDE 105 mmol/L (98-107); CO2 (BICARBONATE) 29 mmol/L (21-32); CREATININE 1.09 mg/dL (0.51-0.95); GLOBULIN (CALCULATION) 3.2 g/dL; GLUCOSE 90 mg/dL (74-106); MAGNESIUM 1.9 mg/dL (1.8-2.4); POTASSIUM 4.1 mmol/L (3.5-5.1)
[2021-06-16 06:53] LABS: BASOPHIL 0.4 % (0-2); EOSINOPHIL 0.7 % (0-5); HCT 39.5 % (37.0-47.0); HGB 12.5 g/dl (12.5-16.0); LYMPHOCYTE 30.4 % (15-48); MCH 28.9 pg (25.0-31.0); MCHC 31.6 g/dL (32.0-36.0); MCV 91.4 fL (78.0-100.0); MONOCYTE 7.5 % (0-12); MPV 11.9 fL (6.0-9.5); NEUTROPHIL 60.8 % (41-80); NRBC 0; PLT 141 K/uL (150-400); RBC 4.32 M/uL (4.20-5.40); RDW 19.4 % (11.5-14.0); WBC 4.5 K/uL (4.0-10.5)
[2021-06-16 07:14] LABS: ALBUMIN 2.7 g/dL (3.4-5.0); ALKALINE PHOSHATASE 81 U/L (46-116); ALT 12 U/L (14-59); AST 17 U/L (15-37); BILIRUBIN - TOTAL 0.5 mg/dL (0.2-1.0); BUN 13 mg/dL (7-18); C-REACTIVE PROTEIN <0.20 mg/dL (<=0.90); CHLORIDE 104 mmol/L (98-107); CO2 (BICARBONATE) 27 mmol/L (21-32); GLOBULIN (CALCULATION) 3.1 g/dL; GLUCOSE 99 mg/dL (74-106); POTASSIUM 4.4 mmol/L (3.5-5.1); TOTAL PROTEIN 5.8 g/dL (6.4-8.2)
[2021-06-16] MEDS ORDERED: CYMBALTA20 MG PO (11:58)
[2021-06-16] MEDS ORDERED: ADVAIR 250/5028 PUFF INH (11:58)
[2021-06-16] MEDS ORDERED: REMERON15 MG PO (11:58)
[2021-06-16] MEDS ORDERED: BUMEX1 MG PO (11:58)
[2021-06-16] MEDS ORDERED: LOSARTAN POTASS25 MG PO (11:58)
[2021-06-16] MEDS ORDERED: LOPRESSOR25 MG PO (11:58)
[2021-06-16] MEDS ORDERED: LACTOBACILLUS1 EACH PO (11:58)
[2021-06-16] MEDS ORDERED: SPIRIVA 185 PUFFS/IN INH (11:58)
[2021-06-16] MEDS ORDERED: UROCIT-K10 MEQ PO (11:58)
[2021-06-16] MEDS ORDERED: PROAIR DIGIHAL90 MCG INH (11:58)
[2021-06-16] MEDS ORDERED: LIPITOR20 MG PO (11:58)
[2021-06-16] MEDS ORDERED: SYNTHROID125 MCG PO (11:58)
[2021-06-16] MEDS ORDERED: MAG-OXIDE 400M400 MG PO (11:58)
[2021-06-16] MEDS ORDERED: ELIQUIS5 MG PO (11:58)
[2021-06-16] MEDS ORDERED: VENTOLIN HFA18 GM INH (13:21)
--- NOTE | 2021-06-16 17:00 | NUR ---
PATIENT STATED SHE DIDNT HAVE A RIDE HOME, SPOKE WITH SHEET PILE HAMMER OPERATOR AND PATIENT GIVEN A CAP VOUCHER, [facility] CALLED.
== END 2021-06-16 17:40 | disposition home or self-care (01) | DRG 291 ==
LOC: FER 06:04 → FMS 07:57
PROVIDERS: Emergency Medicine Emergency Medical Services; ADMIT Family Medicine
DX: I13.0 Hypertensive heart and chronic kidney disease with heart failure and stage 1 through stage 4 chronic kidney disease, or unspecified chronic kidney disease (principal); I50.23 Acute on chronic systolic (congestive) heart failure; N30.01 Acute cystitis with hematuria; J44.9 Chronic obstructive pulmonary disease, unspecified; I48.91 Unspecified atrial fibrillation; N18.2 Chronic kidney disease, stage 2 (mild); Z20.822 Contact with and (suspected) exposure to COVID-19; E03.9 Hypothyroidism, unspecified; E83.42 Hypomagnesemia; I25.10 Atherosclerotic heart disease of native coronary artery without angina pectoris; Z79.01 Long term (current) use of anticoagulants; Z79.899 Other long term (current) drug therapy; Z90.49 Acquired absence of other specified parts of digestive tract; Z90.89 Acquired absence of other organs; Z95.810 Presence of automatic (implantable) cardiac defibrillator; Z87.891 Personal history of nicotine dependence
CPT/HCPCS: 36415; 36600; 71045; 80053; 81001; 82150; 82803; 83036; 83605; 83735; 83880; 84145; 84439; 84443; 84484; 85025; 85610; 85730; 86140; 87040; 87076; 87077; 87088; 87186; 93005; 94010; 94640; 94760; 94762; 96374; 97165; 97530; J0696; J1940; J2405; J3370; J7050; U0002

== ENCOUNTER 2021-08-25 21:18 | Emergency (ER) | payer OTHER ==
[~2021-08-25 21:18] MED LIST changes: +BUMETANIDE1 MG PO; +CHLORZOXAZONE PO; +IMITREX50 MG PO; +LACTOBACILLUS1 EACH PO; +LEVAQUIN500 MG PO; +LIPITOR20 MG PO; +LOPRESSOR25 MG PO; +LOSARTAN POTASS25 MG PO; +SPIRIVA 185 PUFFS/IN INH; +SYNTHROID150 MCG PO; +UROCIT-K10 MEQ PO; +VENTOLIN HFA18 GM INH
[2021-08-26 00:12] LABS: BASOPHIL 0.2 % (0-2); EOSINOPHIL 0 % (0-5); HCT 42.2 % (37.0-47.0); LYMPHOCYTE 28.8 % (15-48); MCH 28.7 pg (25.0-31.0); MCHC 33.2 g/dL (32.0-36.0); MCV 86.5 fL (78.0-100.0); MONOCYTE 7.7 % (0-12); MPV 11.2 fL (6.0-9.5); NEUTROPHIL 62.9 % (41-80); NRBC 0; PLT 191 K/uL (150-400); RBC 4.88 M/uL (4.20-5.40); WBC 5.2 K/uL (4.0-10.5)
[2021-08-26 00:39] LABS: ALBUMIN 2.9 g/dL (3.4-5.0); BUN/CREAT RATIO (CALC) 17.8 RATIO; CREATININE 0.9 mg/dL (0.51-0.95); GLOBULIN (CALCULATION) 4.2 g/dL; POTASSIUM 3.6 mmol/L (3.5-5.1); TOTAL PROTEIN 7.1 g/dL (6.4-8.2)
[2021-08-26 00:41] LABS: LACTIC ACID 2.3 mmol/L (0.4-1.9)
[2021-08-26 00:56] LABS: INFLUENZA A NAA NEGATIVE (NEGATIVE)
[2021-08-26 01:03] LABS: CORONAVIRUS 2019 SARS-COV-2 POSITIVE (NEGATIVE)
[2021-08-26 04:19] LABS: BILIRUBIN NEGATIVE (NEGATIVE); BLOOD NEGATIVE Ery/uL (NEGATIVE); CLARITY HAZY (CLEAR); COLOR YELLOW (YELLOW); GLUCOSE (U) NORMAL (NORMAL); LEUKOCYTES NEGATIVE Leu/uL (NEGATIVE); NITRITE POSITIVE (NEGATIVE); PROTEIN 1+ mg/dL (NEGATIVE); SPECIFIC GRAVITY 1.015 (1.001-1.030)
[2021-08-26 04:28] LABS: BACTERIA 3+; SQUAMOUS EPITHELIAL CELLS 20-50; URINARY RBC RARE
[2021-08-26] MEDS ORDERED: PULMICORT FLE180 MCG INH (04:51)
[2021-08-26] MEDS ORDERED: PERCOCET 5-3251 EACH PO (04:51)
[2021-08-26] MEDS ORDERED: BENTYL10 MG PO (04:51)
[2021-08-26] MEDS ORDERED: ONDANSETRON ODT4 MG SL (04:51)
[2021-08-26] MEDS ORDERED: MACROBID100 MG PO (04:58)
== END 2021-08-26 06:04 | disposition home or self-care (01) ==
LOC: FER 21:18
PROVIDERS: Emergency Medicine Emergency Medical Services
DX: U07.1 COVID-19 (principal); I50.9 Heart failure, unspecified; R18.8 Other ascites; J44.9 Chronic obstructive pulmonary disease, unspecified; I48.91 Unspecified atrial fibrillation; Z79.01 Long term (current) use of anticoagulants; Z95.810 Presence of automatic (implantable) cardiac defibrillator
CPT/HCPCS: 36415; 80053; 81001; 83605; 83690; 83880; 84145; 84484; 85025; 93005; Q9967; U0002

== ENCOUNTER 2021-08-30 20:31 | Emergency (ER) | payer OTHER ==
[~2021-08-30 20:31] MED LIST changes: +BENTYL10 MG PO; +MACROBID100 MG PO; +ONDANSETRON ODT4 MG SL; +PERCOCET 5-3251 EACH PO; +PULMICORT FLE180 MCG INH
[2021-08-30 20:54] LABS: BASOPHIL 0.1 % (0-2); EOSINOPHIL 0 % (0-5); HCT 42.2 % (37.0-47.0); HGB 13.8 g/dl (12.5-16.0); LYMPHOCYTE 16.5 % (15-48); MCH 28.7 pg (25.0-31.0); MCHC 32.7 g/dL (32.0-36.0); MCV 87.7 fL (78.0-100.0); MONOCYTE 7.9 % (0-12); MPV 10.7 fL (6.0-9.5); NEUTROPHIL 75.1 % (41-80); NRBC 1.6; PLT 218 K/uL (150-400); RBC 4.81 M/uL (4.20-5.40); RDW 19.2 % (11.5-14.0); WBC 7.1 K/uL (4.0-10.5)
[2021-08-30 21:29] LABS: CREATININE 1.29 mg/dL (0.51-0.95); POTASSIUM 5.2 mmol/L (3.5-5.1)
[2021-08-30 23:25] LABS: INR 1.93 (0.9-1.2); PROTHROMBIN TIME 21.2 SECONDS (11.8-13.4); PTT 33.9 SECONDS (24.4-34.7)
[2021-08-31 01:37] LABS: BILIRUBIN 2+ mg/dL (NEGATIVE); BLOOD 2+ Ery/uL (NEGATIVE); CLARITY CLEAR (CLEAR); COLOR YELLOW (YELLOW); GLUCOSE (U) NORMAL (NORMAL); LEUKOCYTES 1+ Leu/uL (NEGATIVE); NITRITE NEGATIVE (NEGATIVE); PROTEIN 3+ mg/dL (NEGATIVE); SPECIFIC GRAVITY >=1.030 (1.001-1.030); UROBILINOGEN >=8.0 mg/dL (0.2-1.0); pH 5.5 (5.0-9.0)
[2021-08-31 01:44] LABS: BACTERIA 4+; URINARY WBC TNTC
== END 2021-08-31 02:45 | disposition other institution (70) ==
LOC: FER 20:31
PROVIDERS: Internal Medicine
DX: R57.0 Cardiogenic shock (principal); U07.1 COVID-19; I50.9 Heart failure, unspecified; J44.9 Chronic obstructive pulmonary disease, unspecified; F17.210 Nicotine dependence, cigarettes, uncomplicated
CPT/HCPCS: 36415; 71045; 71250; 80048; 81001; 83735; 83880; 84145; 84484; 85025; 85610; 85730; 87040; 93005; 96365; 96375; J0282; J2543; J3010; J7040; J7050; J7060